=== PATIENT | female | born 1965 | race Caucasian/White ===

== ENCOUNTER 2018-03-09 06:23 | Emergency (ER) | payer BC ==
[~2018-03-09] VITALS: Ht 177.8 cm; Wt 86.4 kg
[2018-03-09 06:27] VITALS: BP 162/84
== END 2018-03-09 07:19 | disposition home or self-care (01) ==
LOC: ER 06:24
DX: S82.831A Other fracture of upper and lower end of right fibula, initial encounter for closed fracture (principal); W17.89XA Other fall from one level to another, initial encounter; Y93.01 Activity, walking, marching and hiking; Y92.89 Other specified places as the place of occurrence of the external cause; Y99.8 Other external cause status
CPT/HCPCS: 29515; 73610; 99284; A6449